=== PATIENT | female | born 1960 | race Caucasian/White ===

== ENCOUNTER → 2017-03-12 | Outpatient (CLI) | payer OTHER ==
[~2017-03-12] MED LIST: ALTACE5 MG PO; LIPITOR10 MG PO; MOTRIN800 MG PO; NEURONTIN600 MG PO; PEPCID40 MG PO; PERCOCET 5/31 TABLET PO; PREDNISONE20 MG PO; ZYRTEC10 M3 PO
== END | disposition home or self-care (01) ==
LOC: NUC 07:11
DX: R94.6 Abnormal results of thyroid function studies (principal)
CPT/HCPCS: 78014; 78999

== ENCOUNTER 2017-10-03 16:06 | Observation (INO) | payer OTHER ==
[~2017-10-03] VITALS: Ht 167.6 cm; Wt 83.6 kg
[2017-10-03 17:13] LABS: HEMATOCRIT 39.1 % (36.0-46.0); HEMOGLOBIN 13.1 G/DL (11.9-15.5); MCH 32.2 PG (29.0-34.0); MCHC 33.5 G/DL (30.0-36.0); MCV 96.1 FL (83-99); PLATELET COUNT 361 K/uL (156-360); RBC DIS.WIDTH-CV 13.2 % (11.8-14.6); RBC DIS.WIDTH-SD 47.2 % (39-53); RED BLOOD COUNT 4.07 M/uL (3.80-5.20); WHITE BLOOD COUNT 9.9 K/uL (4.1-10.2)
[2017-10-03 17:21] LABS: CHLORIDE 106 mEq/L (99-109); POTASSIUM 3.8 mEq/L (3.7-5.4); SODIUM 140 mEq/L (136-147)
[2017-10-03 17:22] LABS: GLUCOSE 113 mg/dL (70-99)
[2017-10-03 17:26] LABS: CREATININE 0.8 mg/dL (0.6-1.3); GFR ESTIMATE (CALCULATED) > 59 mL/min/
[2017-10-03 17:27] LABS: UREA NITROGEN (BUN) 19 mg/dL (9-23)
[2017-10-03 17:34] LABS: TROP-I INTERPRETATION NEGATIVE; TROPONIN-I < 0.01 ng/mL (0.0-0.30)
[2017-10-03] MEDS ORDERED: CYANOCOBALAM1000 MCG PO (19:19)
[2017-10-03] MEDS ORDERED: SYNTHROID100 MCG PO (19:19)
[2017-10-03] MEDS ORDERED: AMOXICILLIN500 MG PO (19:19)
[2017-10-03] MEDS ORDERED: TYLENOL EXTRA500 MG PO (19:19)
[2017-10-03 21:06] VITALS: BP 152/80
[2017-10-03 22:23] LABS: ALBUMIN 4.3 g/dL (3.2-4.8)
[2017-10-03 22:26] LABS: TOTAL PROTEIN 6.9 g/dL (6.4-8.3)
[2017-10-03 22:28] LABS: TOTAL BILIRUBIN 0.3 mg/dL (0.0-1.0)
[2017-10-03 22:29] LABS: ALKALINE PHOSPHATASE 87 IU/L (3-129)
[2017-10-03 22:32] LABS: ALT (GPT) 15 IU/L (3-49); AST (GOT) 15 IU/L (2-34); DIRECT BILIRUBIN 0.1 mg/dL (0.0-0.3)
[2017-10-03 22:37] LABS: TROP-I INTERPRETATION NEGATIVE; TROPONIN-I 0.02 ng/mL (0.0-0.30)
[2017-10-04 00:19] VITALS: BP 130/59
[2017-10-04 05:10] VITALS: BP 101/59
[2017-10-04 05:49] LABS: HEMATOCRIT 40.8 % (36.0-46.0); HEMOGLOBIN 13.1 G/DL (11.9-15.5); MCHC 32.1 G/DL (30.0-36.0); MCV 96.7 FL (83-99); PLATELET COUNT 360 K/uL (156-360); RBC DIS.WIDTH-CV 13.4 % (11.8-14.6); RBC DIS.WIDTH-SD 47.8 % (39-53); RED BLOOD COUNT 4.22 M/uL (3.80-5.20); WHITE BLOOD COUNT 5.7 K/uL (4.1-10.2)
[2017-10-04 06:13] LABS: CHLORIDE 107 MEQ/L (99-109); CREATININE 0.9 MG/DL (0.6-1.3); GFR ESTIMATE (CALCULATED) > 59 mL/min/; GLUCOSE 99 mg/dL (70-99); SODIUM 142 MEQ/L (136-147); UREA NITROGEN (BUN) 16 mg/dL (9-23)
[2017-10-04 06:15] LABS: TROP-I INTERPRETATION NEGATIVE; TROPONIN-I 0.01 ng/mL (0.0-0.30)
[2017-10-04 08:01] VITALS: BP 110/72
[2017-10-04] MEDS ORDERED: CLONAZEPAM0.5 MG PO (09:28)
== END 2017-10-04 11:39 | disposition home or self-care (01) ==
LOC: EME 16:06 → EDOF 19:32 → 5WEST 19:32 → ENRESERV 19:53 → 5WEST 20:58 → ENPENDDIS 10-04 → 5WEST 10-04 11:39
PROVIDERS: Emergency Medicine; Hospitalist
DX: R07.9 Chest pain, unspecified (principal); R06.02 Shortness of breath; R11.0 Nausea; F10.20 Alcohol dependence, uncomplicated; I10 Essential (primary) hypertension; E78.5 Hyperlipidemia, unspecified; E03.9 Hypothyroidism, unspecified; F41.9 Anxiety disorder, unspecified; Z90.710 Acquired absence of both cervix and uterus; F17.290 Nicotine dependence, other tobacco product, uncomplicated; Z82.49 Family history of ischemic heart disease and other diseases of the circulatory system; Z88.5 Allergy status to narcotic agent; Z91.030 Bee allergy status
CPT/HCPCS: 71046; 80048; 80076; 84484; 85027; 93005; 99281; 99285; G0378; J1650